=== PATIENT | female | born 1965 | race Caucasian/White ===

== ENCOUNTER 2023-04-19 10:54 | Emergency (ER) | payer OTHER, SELFPAY ==
[2023-04-19 10:55] VITALS: BP 180/103; PULSE 71; RESP 20; TEMP 36.8; O2SAT 100; BMI 39.9
--- NOTE | 2023-04-19 11:21 | W.ED.FALL ---
HPI - Fall General: Chief Complaint: Fall Stated Complaint: LEFT SHOULDER/KNEE S/P FALL Time Seen by Provider: 04/19/23 10:55 History of Present Illness: Presents to the ER by EMS with complaints of fall left shoulder pain left knee pain. Patient tripped and hit her left knee and left shoulder. Left shoulder is worse than left knee. Patient rates pain at an 8 she did put in a sling which helps take the weight off shoulder. MD complaint: fall Loss of consciousness: None Context: tripped/slipped Location of injury: other (Left shoulder worse than left knee.) Severity: moderate Quality: aching Associated symptoms-after fall: Reports difficulty walking (Due to knee pain) Review of Systems General: Reports: 10 or more systems reviewed and unremarkable except in HPI and below Neuro: Reports: difficulty walking (Due to knee pain) Physical Exam Const: COMMON NORMALS: no acute distress, average body habitus, patient oriented x3, no limitations, healthy appearing, alert and well nourished HENMT: COMMON NORMALS: normocephalic, atraumatic, hearing grossly normal bilaterally, external ears normal, Normal external nose present and moist oral mucous membranes HEAD & SCALP: normocephalic and atraumatic NOSE: Normal external nose present EXTERNAL EAR: Yes external ears normal Neck/C-Spine: COMMON NORMALS: full ROM, no lymphadenopathy, supple, no meningeal signs, no JVD and Thyroid normal THYROID: Thyroid normal Chest: COMMONS NORMALS: normal inspection of the chest and normal palpation of entire chest wall Resp: COMMON NORMALS: normal respiratory effort, No retractions, No use of accessory muscles and clear to auscultation bilaterally AUSCULTATION: clear to auscultation bilaterally Cardio: COMMON NORMALS: no JVD, regular rate, regular rhythm, S1 normal heart sound present, S2 normal heart sound present, No gallops present (Cardio), No clicks present (Cardio), No murmurs present (Cardio) and No rub (Cardio) RATE: regular rate RHYTHM: regular rhythm HEART SOUNDS: S1 normal heart sound present and S2 normal heart sound present GI: COMMON NORMALS: Normal to inspection, nondistended, normoactive bowel sounds present, Soft to palpation, non-tender, No hepatosplenomegaly present and no masses PALPATION: Yes Soft to palpation and Yes No hepatosplenomegaly present Extremity: NARRATIVE EXTREMITY EXAM: Left arm in sling, pain with palpation over anterior region of shoulder but also elbow. Decreased range of motion secondary to pain. Knee tender to palpation on the lateral aspect. Decreased range of motion secondary to pain. Neuro: COMMON NORMALS: patient oriented x3 SENSORIUM/ORIENTATION: Yes alert MENINGEAL SIGNS: Yes no meningeal signs Course Vital Signs: Vital signs: Vital Signs Temperature 98.2 F 04/19/23 10:55 Pulse Rate 71 04/19/23 10:55 Respiratory Rate 18 04/19/23 13:07 Blood Pressure 155/96 04/19/23 13:07 Pulse Oximetry 98 04/19/23 13:07 Oxygen Delivery Me thod Room Air 04/19/23 10:55 MDM - Fall Medical Decision Making Resents to the ER after a fall with complaints of left shoulder and left knee pain. These areas were x-rayed. X-ray of the knee showed inconclusive for nondisplaced fracture and recommended CT CT was arranged which was negative for acute bony abnormalities. Patient be placed in a sling be given pain medicine be discharged home to follow-up with her normal doctor. Patient lives out of town and it was discussed in detail with patient that she may need referral to an orthopedic surgeo and she may have torn something in her shoulder. But patient will arrange this herself when she gets home. Differential Diagnosis Unlikely syncope, dislocation of shoulder region, fracture of wrist, compression fracture, concussion with loss of consciousness or concussion without loss of consciousness Medical Records I reviewed the patient's medical records. Lab Data I reviewed the patient's lab results. Radiology Impressions Knee X-Ray 04/19/23 11:42 IMPRESSION: Findings inconclusive for nondisplaced fracture involving the base of the lateral tibial eminence. Recommend CT examination of the left knee for clarification. Shoulder X-Ray 04/19/23 11:42 IMPRESSION: Moderate AC joint arthrosis. No acute bony abnormalities. Knee CT 04/19/23 12:38 IMPRESSION: 1. No acute bony abnormalities. 2. Degenerative changes with scattered traction spurs. Discharge Plan Discharge Patient Disposition: Home Clinical Impression: Acute pain of left shoulder, Acute pain of left knee Fall Qualifiers: Encounter type: initial encounter Qualified Code(s): W19.XXXA - Unspecified fall, initial encounter Condition: Stable Prescriptions: New oxycodone 5 mg tablet 5 mg PO Q8H PRN (Reason: pain) Qty: 14 0RF No Action bupropion HCl 150 mg tablet extended release 24 hr 150 mg PO QAM Vitamin D3 125 mcg (5,000 unit) Tablet 125 mcg PO QAM Discharge Orders: Discharge ED (Routine); Ordered 04/19/23 Ordered By: Rohit aCm Patient Instructions: Shoulder Pain (ED), Opioid Safety, Pain Management Activity Restrictions/Additional Instructions: When you get when you get back your home please follow-up with your primary care doctor as a referral to an orthopedic surgeon may be warranted. You may have torn something in your rotator cuff. Coding Level of Care Code ED [facility]older for Juan Manuel Espinal
--- NOTE | 2023-04-19 11:42 | XRR_ITS ---
PROCEDURE INFORMATION: Exam: XR Left Knee Exam date and time: 04/19/2023 12:09 PM Age: 57 years old Clinical indication: Pain; Knee; Left; Additional info: Fall, pain TECHNIQUE: Imaging protocol: Radiologic exam of the left knee. Views: 3 views. COMPARISON: No relevant prior studies available. FINDINGS: Bones/joints: There are moderate degenerative changes throughout the knee joint with the some joint space narrowing, subchondral sclerosis and marginal spurring. There is a linear lucency over the base of the lateral tibial eminence inconclusive for nondisplaced fracture. Remaining osseous structures are intact. Soft tissues: Unremarkable. XR/XR knee LT 3V* [id number] IMPRESSION: Findings inconclusive for nondisplaced fracture involving the base of the lateral tibial eminence. Recommend CT examination of the left knee for clarification.
--- NOTE | 2023-04-19 11:42 | XRR_ITS ---
PROCEDURE INFORMATION: Exam: XR Left Shoulder Exam date and time: 04/19/2023 12:09 PM Age: 57 years old Clinical indication: Injury or trauma; Fall; Blunt trauma (contusions or hematomas); Shoulder; Left; Additional info: Fall pain TECHNIQUE: Imaging protocol: Radiologic exam of the left shoulder. Views: 2 or more views. COMPARISON: No relevant prior studies available. FINDINGS: Bones/joints: Moderate degenerative changes at the AC joint with joint space narrowing, subchondral sclerosis and marginal spurring. Glenohumeral joint is unremarkable. No fracture, dislocation or malalignment.. Soft tissues: Normal. XR/XR shoulder LT min 2V* [id number] IMPRESSION: Moderate AC joint arthrosis. No acute bony abnormalities.
[2023-04-19] MEDS: ondansetron 2 mg/ML SDV 2 mL 4 MG IM (11:54)
[2023-04-19 11:55] VITALS: RESP 18
[2023-04-19] MEDS: morphine 4 mg/mL SDV 1 mL 8 MG IM (11:55)
--- NOTE | 2023-04-19 12:38 | CTR_ITS ---
PROCEDURE INFORMATION: Exam: CT Left Lower Extremity Without Contrast, Knee Exam date and time: 04/19/2023 1:13 PM Age: 57 years old Clinical indication: Injury or trauma; Fall; Blunt trauma; Knee; Left; Additional info: Knee pain, abnormal xray, post fall TECHNIQUE: Imaging protocol: CT of the left lower extremity without contrast was performed. Exam focused on the knee. Radiation optimization: All CT scans at this facility use at least one of these dose optimization techniques: automated exposure control; mA and/or kV adjustment per patient size (includes targeted exams where dose is matched to clinical indication); or iterative reconstruction. REPORTING DATA: Count of CT and Cardiac NM exams in prior 12 months: This patient has received 0 known CTs and 0 known cardiac nuclear medicine studies in the 12 months prior to the current study. COMPARISON: CR (LOW EXM, ) 04/19/2023 12:09 PM RADIATION DOSE METRICS: Total DLP (mGy-cm): 329.75 FINDINGS: Bones/joints: Mild-moderate degenerative changes involving the medial and lateral knee compartments as well as lateral aspect patellofemoral joint. There are prominent spur like bony exostosis arising from the lateral tibial eminence and medial aspect of the intercondylar notch degenerative in nature. There is no fracture evident. No significant malalignment. Soft tissues: Small joint effusion. Mild pre patella and infrapatellar of bursitis. CT/CT knee LT wo con* [id number] IMPRESSION: 1. No acute bony abnormalities. 2. Degenerative changes with scattered traction spurs.
[2023-04-19 13:07] VITALS: BP 155/96; RESP 18; O2SAT 98
[2023-04-19 14:25] VITALS: BP 141/84; PULSE 78; RESP 18; O2SAT 98
--- NOTE | 2023-04-22 13:49 | DCPLANNER ---
vessel manager was triggered to call patient due to no primary care physician - patient does not live in the area.
== END 2023-04-19 14:27 | disposition home or self-care (01) ==
PROVIDERS: Emergency Provider Emergency Medicine
DX: M25.512 Pain in left shoulder (principal); M25.562 Pain in left knee
CPT/HCPCS: 73030; 73562; 73700; 96372; 99284; J2270; J2405